=== PATIENT | male | born 1960 | race Caucasian/White ===

== ENCOUNTER → 2021-10-23 | Outpatient (CLI) | payer MEDICARE, OTHER | LOC: M RAD 13:20 | PROVIDERS: ATTEND Physician Assistant | DX: M50.30 Other cervical disc degeneration, unspecified cervical region (principal); M99.61 Osseous and subluxation stenosis of intervertebral foramina of cervical region; M50.223 Other cervical disc displacement at C6-C7 level; M25.78 Osteophyte, vertebrae ==

== ENCOUNTER 2023-08-06 09:11 | Day surgery (SDC) | payer MEDICARE, OTHER ==
[~2023-08-06] VITALS: Ht 175.3 cm; Wt 96.9 kg
[~2023-08-06 09:11] MED LIST: ALPR1TAB3 PO; CENT1TAB2 PO; CITA20TA6 PO; GABA-1171 PO; LANS30CA93 PO; LIDOCAINE 3.5 % 1ML OPHTH TOPICAL GEL OU ONE; LISI10TA22 PO; LORA-1041 PO; METF500T13 PO; MIDAZOLAM INJ 2MG/2ML VIAL As Ordered ONE; OLAN20TA14 PO; OLAN5ZYD PO; TAMS1CAP17 PO; TOBRADEX OPHTH OINT 3.5 GM As Ordered ONE; TRAZ-257 PO; ZIPR20CA13 PO; fentaNYL 100 MCG/2 ML INJECTION As Ordered ONE
[2023-08-06] MEDS ORDERED: LR 1,000 ML IV SCH (11:25)
[2023-08-06] MEDS: POVIDONE-IODINE 5% OPHTH PREP SOL 30ML As Ordered ONE (11:55)
[2023-08-06] MEDS: LIDOCAINE 2% W/EPINEPHRINE 20ML VIAL **PRES FREE As Ordered ONE (12:01)
[2023-08-06 12:26] VITALS: BP 103/65; TEMP 96.5; O2SAT 96
== END 2023-08-06 13:05 | disposition home or self-care (01) ==
LOC: M SDC 09:11
PROVIDERS: ATTEND Ophthalmology
DX: H02.105 Unspecified ectropion of left lower eyelid (principal); E11.40 Type 2 diabetes mellitus with diabetic neuropathy, unspecified; I10 Essential (primary) hypertension; N40.0 Benign prostatic hyperplasia without lower urinary tract symptoms; Z79.899 Other long term (current) drug therapy; Z79.84 Long term (current) use of oral hypoglycemic drugs
CPT/HCPCS: 67917; J2250; J3010

== ENCOUNTER → 2023-09-09 | Outpatient (CLI) | payer MEDICARE, OTHER ==
[~2023-09-09] MED LIST changes: -LIDOCAINE 3.5 % 1ML OPHTH TOPICAL GEL OU ONE; -MIDAZOLAM INJ 2MG/2ML VIAL As Ordered ONE; -TOBRADEX OPHTH OINT 3.5 GM As Ordered ONE; -fentaNYL 100 MCG/2 ML INJECTION As Ordered ONE
== END ==
LOC: M WHC 12:45
PROVIDERS: ATTEND Internal Medicine
DX: N63.21 Unspecified lump in the left breast, upper outer quadrant (principal)
CPT/HCPCS: 77066; G0279

== ENCOUNTER → 2024-10-11 | Outpatient (CLI) | payer MEDICARE, OTHER, MEDICAID ==
[~2024-10-11] MED LIST changes: -OLAN20TA14 PO; +OLAN20TA53 PO
[2024-10-11 17:47] LABS: LITHIUM LEVEL 0.54 MMOL/L (1.0-1.20)
[2024-10-11 17:48] LABS: THYROXINE (T4) 5.1 UG/DL (4.5-10.9)
[2024-10-11 17:50] LABS: T UPTAKE 34.8 % (22.5-37.0)
== END ==
LOC: M PLALAB 14:58
PROVIDERS: ATTEND Psychiatry & Neurology Psychiatry
DX: F25.1 Schizoaffective disorder, depressive type (principal); F41.1 Generalized anxiety disorder